=== PATIENT | male | born 1945 | race Caucasian/White ===

== ENCOUNTER 2016-09-09 08:38 | Day surgery (SDC) | payer MEDICARE, OTHER ==
[~2016-09-09] VITALS: Ht 175.3 cm; Wt 108.9 kg
--- NOTE | 2016-09-09 07:08 | PCM.HPANE ---
Patient Data Surgeon Admitting Provider: Attending Provider:Kristian Garcia MD Primary Care Physician:Robert Pete MD Other Provider:[facility] Reason for Visit Gastric Ulcer Ht/WT & BMI Body Mass Index Allergies Coded Allergies: fluorouracil (Verified Allergy, Severe, 04/18/16) milk (Verified Allergy, Unknown, ASTHMA, 04/18/16) Past Anesthesia History Anesthesia History: Positive for:: Abnormal Airway, Denies:: Anesthesia Reactions, Difficult Intubation, Fam Anesthesia Reaction , Fam Malignant Hypertherm, Malignant Hyperthermia Diabetes History Hx Diabetes?: No MRSA MRSA: No Medications Blood Thinner: Aspirin Active Scripts Sucralfate 1 Gm Tablet1 Gm PO QID #120 TABLET Ref 0 Prov:Tim Zafar MD 03/21/[address] 40 Mg Tablet.dr40 Mg PO BID #60 TABLET Ref 0 Prov:Tim Zafar MD 03/21/16 Reported Medications Levalbuterol Tartrate (Xopenex Hfa)15 Gm Hfa.aer.ad2-4 Puff INH q4 hours PRN For Cough #45 03/18/16 Multivitamin (Once Daily)1 Each Tablet2 Each PO DAILY 03/18/16 Levalbuterol 1.25 Mg/3 Ml Vial.neb3 Ml INH QID PRN For Shortness of Breath #216 03/18/16 Furosemide 20 Mg Tab40 Mg PO BID #360 03/18/16 Tiotropium [place] (Spiriva)18 Mcg Cap.w.dev18 Mcg IH DAILY #1 PKG Ref 0 06/09/14 Potassium Chloride ER 10 Meq Tablet.er20 Meq PO TID 30 Days Ref 0 TAKE WITH FOOD 04/17/14 Lovastatin 20 Mg Rphsfu88 Mg PO HS #30 TABLET Ref 0 04/17/14 Losartan Potassium 100 Mg Qrkaug875 Mg PO DAILY 04/17/14 Atenolol 100 Mg Ofvtnr433 Mg PO BID Ref 0 04/17/14 Allopurinol 300 Mg Xvynqf525 Mg PO DAILY #30 TABLET Ref 0 04/17/14 Discontinued Scripts Amoxicillin/Clav K 875-125 mg (Augmentin 875-125 mg)1 Each Tablet1 Tablet PO BID #7 TABLET Ref 0 Prov:Kristian Stack MD 04/21/16 History History of ENT Problems?: Yes HEENT History: Positive for:: Abnormal Airway Cataracts (01/2016) Hearing Problem (MILD LOWER BRULE) Denies:: Difficult Intubation Dysphagia Sinus Problem Denture Type: None Teeth Condition: Tooth Decay Hx of Heart Problems?: Yes Cardiovascular History: Positive for:: Congestive Heart Failure Edema (wears compression socks) Hypertension (currently treated for HTN) Denies:: AICD Atrial Fibrillation Cardiac Surgery Chest Pain Heart Murmur Irregular Heartbeat Pacemaker Thrombophlebitis Valvular Heart Disease Hx of Respiratory Problem?: Yes Respiratory History: Positive for:: COPD (stable med mgmt, no recent colds, no hx admissions for treatment) Cough (dry) Denies:: Asthma Chest Surgery Emphysema Hemoptysis Tuberculosis Hx Neurologic Problems?: No Neurological History: Denies:: Alzheimer's Disease CVA Dementia Dizziness Headaches Parkinson's Disease Seizures Hx of GI Problems?: Yes Hx of Problems?: No Genitourinary History: Denies:: HX of Hemodialysis Kidney Stones Urinary Tract Infection HX of Peritoneal Dialysis: No Male Hx: Denies:: Prostate Problems Scrotal Mass Testicular Surgery Hx Musculoskeletal Problems?: Yes Musculoskeletal History: Positive for:: Back Injury (due to work) Joint Replacement (R TKA) Denies:: Musculoskeletal Trauma Hx of Psycho/Social Problems?: No Psycho Social History: Denies:: Anxiety Bipolar Disorder Hx Depression Suicide Attempt Hx Surgeries?: Yes (gastric bypass 15 years ago, R TKA, APPY, EPIGLOTTIS SURG.) Hx Any Other Health Problems?: Yes Other History: Positive for:: Hospitalization (1 year ago per pt ) Denies:: Cancer Endocrine Disease Thyroid Disease History Blood Transfusions: Denies:: Blood Transfusions Hx Diabetes: No Hx Alcohol Use: NoHx Substance Use: No Smoking Status: Former Smoker Have You Smoked inLast 12 mo: No Stop/Bang GÓMEZ Risk Assessment: High Risk, =/>3 Yes Risk Assessment Category Category 1A: Patient has history of documented sleep apnea, and HAS NOT received any narcotic, sedative or anesthesia administration during this stay. Category 1B: Patient has history of documented sleep apnea, and HAS received any narcotic , sedative or anesthesia administration during this stay Category 2: Patient has SUSPECTED Obstructive Sleep Apnea, and HAS received any narcotic , sedative or anesthesia administration during this stay. Category 3: Patient has SUSPECTED Obstructive Sleep Apnea and HAS NOT received narcotic, sedative or anesthesia administration during this stay. Category 4: Outpatient in Procedural Areas with known sleep apnea or who screen positive for High Risk via the STOP/BANG questionnaire. Exam Exam General Appearance: Alert, Oriented X3, Cooperative, No Acute Distress HEENT/AIRWAY: MP 2 Lungs: Clear to Auscultation, Normal Air Movement Heart: Exam Unremarkable, Regular Rate/Rhythm, No Murmurs/Rubs/Gallops Plan Impression Patient chart reviewed, patient interviewed and anesthestic plan with risks, benefits, and alternatives discussed, and informed consent obtained. NPO per Anesth. Guidelines: Yes ASA Physical Status: ASA3 Severe Disease Anesthetic Plan: MAC Bene/Risks/Altern/Consents: Yes HP Complete Prior to Induction: Yes Kalina Michel MD Sep 09, 2016 07:08
[~2016-09-09 08:38] MED LIST: ALLO300T2 PO; ATEN100T PO; FUR20 PO; LEVA1.2515 INH; LEVA15HF5 INH; LOSA100T29 PO; LOVA20TA PO; Lactated Ringer's 1,000 ML IV ONE; MULT-666 PO; PANT40TA3 PO; POTA10TA12 PO; SUCR1TAB PO; TIOT18CA3 IH
[2016-09-09] MEDS ORDERED: Propofol 10,000 mCg/mL 20 mL Inj ONE (08:39)
[2016-09-09] MEDS ORDERED: fentaNYL-PF 50 mCg/mL 2 mL Inj ONE (08:39)
[2016-09-09 09:18] VITALS: BP 128/63; PULSE 56; RESP 16; O2SAT 94
[2016-09-09] MEDS ORDERED: Lactated Ringer's 1,000 ML IV SCH (10:03)
--- NOTE | 2016-09-09 10:03 | PCM.ANEP1 ---
Post Anesthesia Phase 1 PACU Phase 1 Assessment Vital Signs Vital Signs Date Time Temp Pulse Resp B/P Pulse Ox O2 Delivery O2 Flow Rate FiO2 09/09/16 09:18 36.2 56 16 128/63 94 Room Air Anesthetic Administered: MAC Level of Alertness: Awake, talking HUFFMAN's with Equal Strength: Yes Pain: No Nausea or Vomiting: No Cardiovascular Function and Hy: Yes Lungs: Clear to Auscultation, Normal Air Movement Kalina Michel MD Sep 09, 2016 10:03
[2016-09-09] MEDS ORDERED: MetoCLOpramide 5 mg/mL 2 mL Inj IVPUSH PRN (10:05)
[2016-09-09] MEDS ORDERED: Ondansetron 2 mg/mL 2 mL Inj IVPUSH PRN (10:05)
[2016-09-09 10:08] VITALS: BP 102/61; PULSE 50; RESP 16; O2SAT 95
[2016-09-09 10:11] VITALS: BP 123/62; PULSE 59; RESP 14; O2SAT 92
[2016-09-09 10:22] VITALS: BP 106/61; PULSE 52; RESP 16; O2SAT 92
--- NOTE | 2016-09-09 10:30 | ENDO ---
[address] [address] ENDOSCOPY PROCEDURE PATIENT: DAMI MORRISON : 1945 MR#: [id number] ADMIT: 09/09/2016 JOB ID: [id number] TYPE OF OPERATION: Esophagogastroduodenoscopy. PREOPERATIVE DIAGNOSIS(ES): History of gastric ulcer. POSTOPERATIVE DIAGNOSIS(ES): 1. Markedly improved healing gastric ulcer seen in the gastric pouch. 2. 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 ANESTHESIA: Monitored anesthesia care. COMPLICATIONS: None. BLOOD LOSS: Minimal. DESCRIPTION OF PROCEDURE: After risks and benefits were explained to the patient. Informed consent was obtained. After anesthesia administered, upper endoscope was inserted in mouth intubating the esophagus. The stomach, second portion to the small bowel mucosa carefully examined. After the procedure was done, scope withdrawn and procedure terminated. FINDINGS: Upon inspection of the esophagus, the esophagus was normal without masses, ulcers, or lesions. Z-line located 45 cm from incisors. Upon visualization of the stomach, the previous seen gastric ulcer that was seen in the pouch has markedly improved to almost were it is completely healed. The scope was then advanced to the long limb, which was normal. IMPRESSIONS: 1. Markedly improved and almost completely healed gastric ulcer 3 cm that was seen on previous upper endoscopy on January 17, 2016. 2. Status post Gene-en-Y gastric bypass. RECOMMENDATIONS: 1. Continue Carafate 1 g by mouth 4 times a day. 2. Protonix 40 mg by mouth twice a day. 3. Follow up in GI clinic as needed.
== END 2016-09-09 23:59 | disposition home or self-care (01) ==
LOC: END 08:38
PROVIDERS: ATTEND Internal Medicine Gastroenterology
DX: K25.9 Gastric ulcer, unspecified as acute or chronic, without hemorrhage or perforation (principal); K43.2 Incisional hernia without obstruction or gangrene; I10 Essential (primary) hypertension; I50.30 Unspecified diastolic (congestive) heart failure; E78.5 Hyperlipidemia, unspecified; J44.9 Chronic obstructive pulmonary disease, unspecified; G47.33 Obstructive sleep apnea (adult) (pediatric); E66.9 Obesity, unspecified; M10.9 Gout, unspecified; Z96.651 Presence of right artificial knee joint; Z87.891 Personal history of nicotine dependence; Z79.82 Long term (current) use of aspirin; Z68.36 Body mass index [BMI] 36.0-36.9, adult; Z98.84 Bariatric surgery status
CPT/HCPCS: 43235; J2250; J3010; J7120